=== PATIENT | male | born 1980 | race Hispanic/Latino ===

== ENCOUNTER 2022-03-15 09:32 | Emergency (ER) | payer OTHER ==
[~2022-03-15] VITALS: Ht 180.3 cm; Wt 110.2 kg
[2022-03-15 09:33] VITALS: BP 120/52
[2022-03-15 10:09] LABS: BASOPHILS % (AUTO) 0.4 % (0.0-5.0); EOSINOPHILS % (AUTO) 0.2 % (0.0-8.0); HEMATOCRIT 42.7 % (42-54); LYMPHOCYTES % (AUTO) 15.7 % (21.0-51.0); MEAN CORPUSCULAR HEMOGLOBIN 28.2 pg (27.0-33.0); MEAN CORPUSCULAR HGB CONC 33.7 g/dL (32.0-36.0); MEAN CORPUSCULAR VOLUME 83.7 fL (79-99); MONOCYTES % (AUTO) 7.4 % (3.0-13.0); NEUTROPHILS % (AUTO) 75.4 % (40.0-77.0); PLATELET COUNT (AUTO) 430 K/uL (130-400); WHITE BLOOD COUNT (AUTO) 17.4 K/uL (4.8-10.8)
[2022-03-15 10:24] LABS: CREATININE 1.2 mg/dL (0.5-1.5); POTASSIUM 3.7 mmol/L (3.5-5.1)
[2022-03-15 10:26] LABS: ALBUMIN 3.9 g/dL (3.5-5.0); TOTAL PROTEIN, SERUM 7.9 g/dL (6.0-8.3)
[2022-03-15 10:55] LABS: APPEARANCE,URINE CLOUDY (CLEAR); BILIRUBIN,URINE SMALL mg/dL (NEGATIVE); COLOR,URINE DARK YELLOW (YELLOW); GLUCOSE, URINE (UA) NEGATIVE (NEGATIVE); KETONES,URINE 5 mg/dL (NEGATIVE); LEUKOCYTE ESTERASE ,URINE NEGATIVE Leu/uL (NEGATIVE); NITRATE,URINE NEGATIVE (NEGATIVE); OCCULT BLOOD,URINE LARGE (NEGATIVE); PROTEIN,URINE 100 mg/dL (NEGATIVE)
[2022-03-15 11:14] LABS: BACTERIA,URINE Few /HPF (None Seen); RBC,URINE TNTC /HPF (0-1); SQUAMOUS EPITHELIAL CELL,UR Few /HPF (0-2)
[2022-03-15 11:15] LABS: MUCUS,URINE Rare LPF (None Seen)
[2022-03-15] MEDS ORDERED: KETOROLAC 30MG VIAL (30MG/ML) IVP STA (12:31)
[2022-03-15] MEDS ORDERED: CEPH500B PO (12:41)
[2022-03-15] MEDS ORDERED: KETO10TA2 PO (12:41)
[2022-03-15] MEDS ORDERED: TAMS-1 PO (12:41)
[2022-03-15] MEDS ORDERED: ZOSYN 3.375GM +NS 50ML IV SCH (12:44)
[2022-03-15] MEDS ORDERED: 0.9%NACL 1000ML 1,000 ML IV ONE (13:00)
== END 2022-03-15 13:22 | disposition home or self-care (01) ==
LOC: EDH 09:32
DX: N20.0 Calculus of kidney (principal); D72.829 Elevated white blood cell count, unspecified; F43.10 Post-traumatic stress disorder, unspecified; Z98.890 Other specified postprocedural states
CPT/HCPCS: 99284; 74176; 96365; 96375; 80053; 85025; 81001; 36415; J7030; J1885; J2543